=== PATIENT | male | born 1975 | race Caucasian/White ===

== ENCOUNTER 2019-11-14 21:25 | Emergency (ER) | payer MEDICAID, OTHER ==
[~2019-11-14] VITALS: Ht 182.9 cm; Wt 89.8 kg
[2019-11-14 22:13] LABS: Basophils # (auto) 0 10 ^3/uL (0-0.2); Basophils % (auto) 0.2 % (0.0-2.0); Eosinophils # (auto) 0.5 10 ^3/uL (0-0.8); Eosinophils % (auto) 2.8 % (0.0-7.0); Hematocrit 46.7 % (41.0-53.0); Hemoglobin 15.9 g/dL (13.5-17.5); Lymphocytes # (auto) 4.8 10 ^3/uL (0.4-5.4); Mean Corpuscular Hemoglobin 32.1 pg (28.0-32.0); Mean Corpuscular Hgb Conc. 34.1 g/dL (32.0-36.0); Mean Corpuscular Volume 94.2 fL (80.0-100.0); Monocytes # (auto) 0.8 10 ^3/uL (0-1.3); Monocytes % (auto) 5.1 % (0.0-12.0); Neutrophils # (auto) 10.4 10 ^3/uL (1.6-8.6); Neutrophils % (auto) 62.9 % (37.0-80.0); Platelet Count (auto) 339 10^3/uL (140-450); Red Blood Cells 4.95 10^6/uL (4.5-5.90); White Blood Cell 16.5 10^3/uL (4.4-10.8)
[2019-11-14 22:32] LABS: Albumin 3.5 g/dL (3.4-5.0); Anion Gap 5 (5-15); Blood Urea Nitrogen 18 mg/dL (7-18); Carbon Dioxide 26 mmol/L (21-32); Chloride 104 mmol/L (98-107); Glucose 176 mg/dL (74-106); Potassium 4.1 mmol/L (3.5-5.1); Sodium 135 mmol/L (136-145)
[2019-11-14 22:37] LABS: Alanine Aminotransferase 38 U/L (16-61); Alkaline Phosphatase 146 U/L (45-117); Aspartate Aminotransferase 15 U/L (15-37); BUN/Creatinine Ratio 15.7; Bilirubin, Total 0.3 mg/dL (0.2-1.0); GFR African American 88 mL/min; GFR Non-African American 73 mL/min; Total Protein 8.3 g/dL (6.4-8.2)
[2019-11-15] MEDS ORDERED: ONDANSETRON HCL 4 MG/2 ML VIAL IV ONE (00:45)
[2019-11-15] MEDS ORDERED: HYDROmorphone HCL 2 MG/ML VL IV ONE (00:45)
[2019-11-15 01:00] VITALS: BP 115/76
== END 2019-11-15 01:58 | disposition home or self-care (01) ==
LOC: ER 21:27
DX: R51.9 Headache, unspecified (principal); M54.5 Low back pain; K80.20 Calculus of gallbladder without cholecystitis without obstruction; I71.4 Abdominal aortic aneurysm, without rupture
CPT/HCPCS: 36415; 70450; 74176; 80053; 84484; 85025; 93005; 96374; 96375; 99285; J1170; J2405

== ENCOUNTER 2020-12-11 08:00 | Emergency (ER) | payer SELFPAY ==
[~2020-12-11] VITALS: Ht 182.9 cm; Wt 81.6 kg
[2020-12-11 08:09] VITALS: BP 182/113
[2020-12-11 08:31] LABS: Urine WBC None Seen /hpf (0 - 3)
[2020-12-11 08:47] LABS: Urine Bacteria NONE SEEN /hpf (None Seen); Urine Blood Negative /uL (Negative); Urine Specific Gravity 1.026 (1.001-1.035)
== END 2020-12-11 09:47 | disposition left against medical advice (07) ==
LOC: ER 08:00
DX: R10.9 Unspecified abdominal pain (principal); R11.0 Nausea; R30.0 Dysuria; Z53.21 Procedure and treatment not carried out due to patient leaving prior to being seen by health care provider
CPT/HCPCS: 81001

== ENCOUNTER 2021-02-03 11:08 | Inpatient (IN) | payer MEDICAID, OTHER ==
[~2021-02-03] VITALS: Ht 177.8 cm; Wt 96.5 kg
[2021-02-03] MEDS ORDERED: LORazepam 2MG/ML-1ML VIAL IV ONE ×2 (11:30→15:00)
[2021-02-03] MEDS ORDERED: SODIUM CHLORIDE 0.9% 1,000 ML IVB ONE (11:30)
[2021-02-03 12:21] LABS: Basophils # (auto) 0.1 10 ^3/uL (0-0.2); Eosinophils # (auto) 0.4 10 ^3/uL (0-0.8); Hematocrit 46.5 % (41.0-53.0); Hemoglobin 15.6 g/dL (13.5-17.5); Lymphocytes # (auto) 2.6 10 ^3/uL (0.4-5.4); Lymphocytes % (auto) 22.3 % (10.0-50.0); Mean Corpuscular Hemoglobin 32.8 pg (28.0-32.0); Mean Corpuscular Hgb Conc. 33.5 g/dL (32.0-36.0); Mean Corpuscular Volume 97.6 fL (80.0-100.0); Monocytes # (auto) 0.8 10 ^3/uL (0-1.3); Monocytes % (auto) 6.4 % (0.0-12.0); Neutrophils % (auto) 67.3 % (37.0-80.0); Nucleated Red Blood Cells % 0.1 %; Red Blood Cells 4.76 10^6/uL (4.5-5.90); Red Cell Distribution Width 13.3 % (11.8-14.3); White Blood Cell 11.8 10^3/uL (4.4-10.8)
[2021-02-03 12:35] LABS: Albumin 3.3 g/dL (3.4-5.0); Anion Gap 4 (5-15); Aspartate Aminotransferase 38 U/L (15-37); BUN/Creatinine Ratio 12.9; Blood Alcohol < 3.0 mg/dL (0-5); Blood Urea Nitrogen 13 mg/dL (7-18); Carbon Dioxide 25 mmol/L (21-32); Chloride 111 mmol/L (98-107); GFR African American 102 mL/min; GFR Non-African American 84 mL/min; Glucose 111 mg/dL (74-106); Magnesium 1.9 mg/dL (1.6-2.6); Potassium 4.1 mmol/L (3.5-5.1); Sodium 140 mmol/L (136-145)
[2021-02-03 12:49] LABS: Alanine Aminotransferase 40 U/L (16-61); Alkaline Phosphatase 106 U/L (45-117); Bilirubin, Total 0.5 mg/dL (0.2-1.0)
[2021-02-03] MEDS ORDERED: ASPirin 81 mg TAB PO ONE ×2 (14:30→15:00)
[2021-02-03] MEDS ORDERED: MORPHINE SULFATE INJECTION 2 MG/ML SYRG IV PRN (15:00)
[2021-02-03] MEDS ORDERED: DEXTROSE (50%) 50ML SYRG IV PRN (15:00)
[2021-02-03] MEDS ORDERED: LISINOPRIL 10 MG TAB PO ONE (15:00)
[2021-02-03] MEDS ORDERED: NITROGLYCERIN 0.4 MG SL TAB SL PRN (15:00)
[2021-02-03] MEDS ORDERED: traMADol HCL 50 MG TAB PO PRN (15:00)
[2021-02-03] MEDS ORDERED: ACETAMINOPHEN 500 MG TAB PO PRN (15:00)
[2021-02-03 15:13] LABS: Alcohol, Urine < 3.0 mg/dL (0-10); Amphetamine Screen, Urine NEGATIVE (NEGATIVE); Barbiturate Scree,Urine NEGATIVE (NEGATIVE); Benzodiazephine Screen, Urine NEGATIVE (NEGATIVE); Cannabinoid Screen, Urine NEGATIVE (NEGATIVE); Cocaine Screen, Urine NEGATIVE (NEGATIVE); Opiate Scree,Urine NEGATIVE (NEGATIVE); Phencyclidine Screen, Urine NEGATIVE (NEGATIVE); Urine Bacteria FEW /hpf (None Seen); Urine Blood Negative /uL (Negative); Urine Specific Gravity 1.008 (1.001-1.035); Urine WBC <1 /hpf (0 - 3)
[2021-02-03] MEDS ORDERED: LORazepam 2MG/ML-1ML VIAL IV PRN (16:30)
[2021-02-03] MEDS: InsuLIN REG 1unit/0.01ml Soln (100units/ml) SC SCH ×2 (17:00→23:11)
[2021-02-03] MEDS: ACCU-CHEK COMFORT CURVE STRIP VI SCH ×2 (17:16→23:08)
[2021-02-03 19:30] VITALS: BP 146/98
[2021-02-03] MEDS ORDERED: HYDR-4833 PO (20:23)
[2021-02-03] MEDS ORDERED: HYDR-4072 PO (20:23)
[2021-02-03] MEDS ORDERED: ATORVASTATIN 20 MG TAB PO SCH (22:00)
[2021-02-03] MEDS: APIXABAN 5 MG TAB PO SCH (23:08)
[2021-02-04] MEDS ORDERED: HYDROcodone-ACET 5/325MG TAB PO PRN (05:30)
[2021-02-04 06:00] VITALS: BP 136/95
[2021-02-04 06:30] LABS: Potassium 4.2 mmol/L (3.5-5.1)
[2021-02-04 06:35] LABS: BUN/Creatinine Ratio 18.1; Calcium 9.2 mg/dL (8.5-10.1)
[2021-02-04] MEDS: InsuLIN REG 1unit/0.01ml Soln (100units/ml) SC SCH ×3 (07:00→17:00)
[2021-02-04] MEDS: ACCU-CHEK COMFORT CURVE STRIP VI SCH ×3 (07:11→17:00)
[2021-02-04 07:43] LABS: Basophils # (auto) 0.1 10 ^3/uL (0-0.2); Basophils % (auto) 0.6 % (0.0-2.0); Eosinophils # (auto) 0.4 10 ^3/uL (0-0.8); Eosinophils % (auto) 4.3 % (0.0-7.0); Hemoglobin 15.4 g/dL (13.5-17.5); Lymphocytes # (auto) 2.8 10 ^3/uL (0.4-5.4); Lymphocytes % (auto) 28.7 % (10.0-50.0); Mean Corpuscular Hgb Conc. 34.1 g/dL (32.0-36.0); Mean Corpuscular Volume 96.8 fL (80.0-100.0); Monocytes # (auto) 0.6 10 ^3/uL (0-1.3); Monocytes % (auto) 6.3 % (0.0-12.0); Neutrophils % (auto) 60.1 % (37.0-80.0); Nucleated Red Blood Cells % 0.1 %; Red Blood Cells 4.65 10^6/uL (4.5-5.90); Red Cell Distribution Width 13.1 % (11.8-14.3); White Blood Cell 9.9 10^3/uL (4.4-10.8)
[2021-02-04 09:00] VITALS: BP 126/82
[2021-02-04] MEDS: APIXABAN 5 MG TAB PO SCH (09:42)
[2021-02-04] MEDS ORDERED: LISINOPRIL 10 MG TAB PO SCH (10:00)
[2021-02-04] MEDS ORDERED: ASPirin 81 mg TAB PO SCH (10:00)
[2021-02-04] MEDS ORDERED: ATO40T PO (11:57)
[2021-02-04 12:40] VITALS: BP 125/95
[2021-02-04 16:17] VITALS: BP 126/82
[2021-02-05] MEDS ORDERED: ASPI-543 PO (16:02)
[2021-02-05] MEDS ORDERED: APIX5TAB PO (16:02)
== END 2021-02-04 18:15 | disposition home or self-care (01) | DRG 45 ==
LOC: ER 11:08 → EDBD 11:08 → TELE 14:46 → TELE-WESTW 19:02
PROVIDERS: ADMIT Internal Medicine; ATTEND Internal Medicine
DX: I63.9 Cerebral infarction, unspecified (principal); I13.0 Hypertensive heart and chronic kidney disease with heart failure and stage 1 through stage 4 chronic kidney disease, or unspecified chronic kidney disease; I50.22 Chronic systolic (congestive) heart failure; E11.22 Type 2 diabetes mellitus with diabetic chronic kidney disease; H53.462 Homonymous bilateral field defects, left side; N18.9 Chronic kidney disease, unspecified; E66.9 Obesity, unspecified; D18.02 Hemangioma of intracranial structures; F17.210 Nicotine dependence, cigarettes, uncomplicated; Z20.822 Contact with and (suspected) exposure to COVID-19; Z79.01 Long term (current) use of anticoagulants; Z79.899 Other long term (current) drug therapy; Z85.528 Personal history of other malignant neoplasm of kidney; Z85.858 Personal history of malignant neoplasm of other endocrine glands; I25.2 Old myocardial infarction; Z86.73 Personal history of transient ischemic attack (TIA), and cerebral infarction without residual deficits; Z90.5 Acquired absence of kidney; Z71.6 Tobacco abuse counseling; Z68.30 Body mass index [BMI] 30.0-30.9, adult; Z91.010 Allergy to peanuts
CPT/HCPCS: 36415; 70450; 70551; 71045; 74176; 80048; 80053; 80061; 80307; 80320; 81001; 82962; 83036; 83735; 85025; 93005; 93306; 93886; 96361; 96374; G0378; J1815; J7060

== ENCOUNTER 2021-02-05 09:50 | Inpatient (IN) | payer MEDICAID, OTHER ==
[~2021-02-05] VITALS: Ht 182.9 cm; Wt 50.8 kg
[~2021-02-05 09:50] MED LIST: ATO40T PO; HYDR-4072 PO; HYDR-4833 PO
[2021-02-05] MEDS ORDERED: SODIUM CHLORIDE 0.9% 1,000 ML IV ONE (10:45)
[2021-02-05 11:16] LABS: Basophils # (auto) 0.1 10 ^3/uL (0-0.2); Basophils % (auto) 0.8 % (0.0-2.0); Eosinophils # (auto) 0.3 10 ^3/uL (0-0.8); Eosinophils % (auto) 2.7 % (0.0-7.0); Hematocrit 46.5 % (41.0-53.0); Lymphocytes # (auto) 2.6 10 ^3/uL (0.4-5.4); Mean Corpuscular Hemoglobin 33.3 pg (28.0-32.0); Mean Corpuscular Hgb Conc. 34.5 g/dL (32.0-36.0); Mean Corpuscular Volume 96.6 fL (80.0-100.0); Monocytes # (auto) 0.5 10 ^3/uL (0-1.3); Monocytes % (auto) 4.5 % (0.0-12.0); Neutrophils # (auto) 7.9 10 ^3/uL (1.6-8.6); Red Blood Cells 4.81 10^6/uL (4.5-5.90); Red Cell Distribution Width 13.2 % (11.8-14.3); White Blood Cell 11.4 10^3/uL (4.4-10.8)
[2021-02-05 11:30] LABS: INR 1.03 (0.9-1.15); Partial Thromboplastin Time 28.8 sec (23.6-33.0)
[2021-02-05 11:33] LABS: Albumin 3.7 g/dL (3.4-5.0); Calcium 9.5 mg/dL (8.5-10.1); Magnesium 2.8 mg/dL (1.6-2.6); Potassium 4.3 mmol/L (3.5-5.1)
[2021-02-05 11:37] LABS: BUN/Creatinine Ratio 14.5; Bilirubin, Total 0.6 mg/dL (0.2-1.0); Total Protein 7.8 g/dL (6.4-8.2)
[2021-02-05] MEDS ORDERED: MORPHINE SULFATE INJECTION 2 MG/ML SYRG IV PRN ×2 (12:45→14:30)
[2021-02-05] MEDS ORDERED: NITROGLYCERIN 0.4 MG SL TAB SL PRN ×2 (12:45→14:30)
[2021-02-05 14:28] LABS: Urine Bacteria NONE SEEN /hpf (None Seen); Urine Blood Negative /uL (Negative); Urine Hyaline Cast FEW /lpf (0 - 2); Urine Specific Gravity 1.022 (1.001-1.035); Urine WBC 1 /hpf (0 - 3)
[2021-02-05] MEDS ORDERED: FAMOTIDINE (10MG/ML) 2ML VL IV ONE (14:30)
[2021-02-05] MEDS ORDERED: hydrALAZINE HCL 20 MG/ML VL IV PRN (14:30)
[2021-02-05] MEDS ORDERED: DOCUSATE SOD 100 MG CAP PO PRN (14:30)
[2021-02-05] MEDS ORDERED: ALUM & MAG HYDROX-SIMETH LIQ(MAALOX) 30 ML PO PRN (14:30)
[2021-02-05] MEDS ORDERED: ENOXAPARIN SOD 100 MG/1 ML SYRINGE SC ONE (14:30)
[2021-02-05] MEDS ORDERED: ACETAMINOPHEN 325 MG TAB PO PRN (14:30)
[2021-02-05] MEDS ORDERED: METOPROLOL SUCCINATE XL 50 MG TAB PO ONE (14:30)
[2021-02-05] MEDS ORDERED: DEXTROSE (50%) 50ML SYRG IV PRN (14:30)
[2021-02-05] MEDS ORDERED: BENAZEPRIL HCL 10 MG TAB PO ONE (14:30)
[2021-02-05] MEDS ORDERED: LORazepam 0.5 MG TAB PO PRN (14:30)
[2021-02-05] MEDS: SODIUM CHLORIDE 0.9% 1,000 ML IV SCH (14:56)
[2021-02-05 15:08] LABS: Amphetamine Screen, Urine NEGATIVE (NEGATIVE); Barbiturate Scree,Urine NEGATIVE (NEGATIVE); Benzodiazephine Screen, Urine NEGATIVE (NEGATIVE); Cannabinoid Screen, Urine NEGATIVE (NEGATIVE); Cocaine Screen, Urine NEGATIVE (NEGATIVE); Opiate Scree,Urine POSITIVE (NEGATIVE); Phencyclidine Screen, Urine NEGATIVE (NEGATIVE)
[2021-02-05] MEDS ORDERED: ASPI-543 PO (16:02)
[2021-02-05] MEDS ORDERED: APIX5TAB PO (16:02)
[2021-02-05 17:00] VITALS: BP_SYST 122; BP_SYST 149; BP_DIAS 82; BP_DIAS 90
[2021-02-05] MEDS: ACCU-CHEK COMFORT CURVE STRIP VI SCH ×2 (17:00→22:03)
[2021-02-05] MEDS ORDERED: HYDROmorphone HCL 2 MG/ML VL IV ONE (17:00)
[2021-02-05] MEDS: InsuLIN REG 1unit/0.01ml Soln (100units/ml) SC SCH ×2 (17:32→22:00)
[2021-02-05] MEDS: FUROSEMIDE 20 MG/2 ML VIAL IV SCH (18:36)
[2021-02-05 21:51] VITALS: BP 108/79
[2021-02-05] MEDS: ATORVASTATIN 20 MG TAB PO SCH (21:58)
[2021-02-05] MEDS: FAMOTIDINE (10MG/ML) 2ML VL IV SCH (21:58)
[2021-02-06] MEDS: METOCLOPRAMIDE HCL 5MG/ml INJ 2ml VIAL IV PRN ×2 (00:54→05:14)
[2021-02-06] MEDS: MORPHINE SULFATE INJECTION 2 MG/ML SYRG IV PRN ×2 (00:54→05:16)
[2021-02-06 04:43] VITALS: BP 106/68
[2021-02-06] MEDS: FUROSEMIDE 20 MG/2 ML VIAL IV SCH (06:29)
[2021-02-06] MEDS: ACCU-CHEK COMFORT CURVE STRIP VI SCH ×4 (06:33→22:20)
[2021-02-06] MEDS: InsuLIN REG 1unit/0.01ml Soln (100units/ml) SC SCH ×4 (06:33→22:00)
[2021-02-06 06:57] LABS: Basophils # (auto) 0.1 10 ^3/uL (0-0.2); Basophils % (auto) 0.8 % (0.0-2.0); Eosinophils # (auto) 0.3 10 ^3/uL (0-0.8); Eosinophils % (auto) 3.4 % (0.0-7.0); Hematocrit 43.7 % (41.0-53.0); Hemoglobin 15.6 g/dL (13.5-17.5); Lymphocytes # (auto) 3.1 10 ^3/uL (0.4-5.4); Lymphocytes % (auto) 32.5 % (10.0-50.0); Mean Corpuscular Hemoglobin 34.6 pg (28.0-32.0); Mean Corpuscular Hgb Conc. 35.6 g/dL (32.0-36.0); Monocytes # (auto) 0.7 10 ^3/uL (0-1.3); Monocytes % (auto) 7.5 % (0.0-12.0); Neutrophils # (auto) 5.3 10 ^3/uL (1.6-8.6); Neutrophils % (auto) 55.8 % (37.0-80.0); White Blood Cell 9.6 10^3/uL (4.4-10.8)
[2021-02-06 07:03] LABS: INR 1.01 (0.9-1.15); Partial Thromboplastin Time 28.3 sec (23.6-33.0)
[2021-02-06 07:08] LABS: Potassium 4.1 mmol/L (3.5-5.1)
[2021-02-06] MEDS: SODIUM CHLORIDE 0.9% 1,000 ML IV SCH (07:10)
[2021-02-06 07:18] LABS: Albumin 3.4 g/dL (3.4-5.0); BUN/Creatinine Ratio 16.2; Bilirubin, Total 0.3 mg/dL (0.2-1.0); Magnesium 2.8 mg/dL (1.6-2.6); Total Protein 7.6 g/dL (6.4-8.2)
[2021-02-06 08:00] VITALS: BP 113/71
[2021-02-06 09:00] VITALS: BP 114/69
[2021-02-06] MEDS: ASPirin 81 mg TAB PO SCH (09:25)
[2021-02-06] MEDS: FAMOTIDINE (10MG/ML) 2ML VL IV SCH ×2 (09:25→22:20)
[2021-02-06] MEDS: BENAZEPRIL HCL 10 MG TAB PO SCH (09:26)
[2021-02-06] MEDS: METOPROLOL SUCCINATE XL 50 MG TAB PO SCH (09:26)
[2021-02-06 12:10] LABS: Cholesterol 159 mg/dL (< 200); HDL Cholesterol 20 mg/dL (40-59); Triglycerides 406 mg/dL (< 150)
[2021-02-06 12:31] VITALS: BP 117/70
[2021-02-06] MEDS: HYDROcodone-ACET 10/325MG TAB PO PRN (15:47)
[2021-02-06] MEDS ORDERED: NICOTINE 21MG/24 HR TOPICAL PATCH TD ONE (16:00)
[2021-02-06 17:13] VITALS: BP 107/73
[2021-02-06 22:00] VITALS: BP 107/70
[2021-02-06] MEDS: ATORVASTATIN 20 MG TAB PO SCH (22:20)
[2021-02-07 05:00] VITALS: BP 113/72
[2021-02-07 06:22] LABS: Basophils # (auto) 0.1 10 ^3/uL (0-0.2); Basophils % (auto) 0.9 % (0.0-2.0); Lymphocytes # (auto) 3.3 10 ^3/uL (0.4-5.4); Monocytes # (auto) 0.8 10 ^3/uL (0-1.3); Monocytes % (auto) 8.2 % (0.0-12.0); White Blood Cell 9.2 10^3/uL (4.4-10.8)
[2021-02-07 06:24] LABS: Eosinophils # (auto) 0.3 10 ^3/uL (0-0.8); Eosinophils % (auto) 3.6 % (0.0-7.0); Hematocrit 42.1 % (41.0-53.0); Hemoglobin 14.9 g/dL (13.5-17.5); Lymphocytes % (auto) 35.5 % (10.0-50.0); Mean Corpuscular Hemoglobin 33.9 pg (28.0-32.0); Mean Corpuscular Hgb Conc. 35.4 g/dL (32.0-36.0); Mean Corpuscular Volume 95.8 fL (80.0-100.0); Neutrophils # (auto) 4.8 10 ^3/uL (1.6-8.6); Neutrophils % (auto) 51.8 % (37.0-80.0); Red Cell Distribution Width 12.9 % (11.8-14.3)
[2021-02-07 06:46] LABS: Calcium 9.2 mg/dL (8.5-10.1); Potassium 4.1 mmol/L (3.5-5.1)
[2021-02-07 06:53] LABS: BUN/Creatinine Ratio 24.1
[2021-02-07] MEDS: InsuLIN REG 1unit/0.01ml Soln (100units/ml) SC SCH ×4 (07:00→22:00)
[2021-02-07] MEDS: ACCU-CHEK COMFORT CURVE STRIP VI SCH ×4 (07:20→22:28)
[2021-02-07 09:00] VITALS: BP 115/81
[2021-02-07] MEDS: HYDROcodone-ACET 10/325MG TAB PO PRN (09:47)
[2021-02-07] MEDS: FUROSEMIDE 20 MG/2 ML VIAL IV SCH (10:00)
[2021-02-07] MEDS: NICOTINE 21MG/24 HR TOPICAL PATCH TD SCH (10:00)
[2021-02-07] MEDS: ASPirin 81 mg TAB PO SCH (10:00)
[2021-02-07] MEDS: FAMOTIDINE (10MG/ML) 2ML VL IV SCH (10:00)
[2021-02-07] MEDS: BENAZEPRIL HCL 10 MG TAB PO SCH (10:00)
[2021-02-07] MEDS: METOPROLOL SUCCINATE XL 50 MG TAB PO SCH (10:00)
[2021-02-07] MEDS ORDERED: LORazepam 2MG/ML-1ML VIAL IV PRN (14:45)
[2021-02-07] MEDS: ATORVASTATIN 20 MG TAB PO SCH (21:54)
[2021-02-07 22:00] VITALS: BP 135/100
[2021-02-07] MEDS: MUPIROCIN 2% OINT 15gm or 22gm EACHNOSTRI SCH (22:11)
[2021-02-07] MEDS: MORPHINE SULFATE INJECTION 2 MG/ML SYRG IV PRN (22:11)
[2021-02-07] MEDS: METOCLOPRAMIDE HCL 5MG/ml INJ 2ml VIAL IV PRN (22:19)
[2021-02-08] MEDS: HYDROcodone-ACET 10/325MG TAB PO PRN ×3 (02:55→21:30)
[2021-02-08 05:00] VITALS: BP 119/75
[2021-02-08] MEDS: InsuLIN REG 1unit/0.01ml Soln (100units/ml) SC SCH ×4 (06:51→21:36)
[2021-02-08] MEDS: ACCU-CHEK COMFORT CURVE STRIP VI SCH ×4 (06:52→21:31)
[2021-02-08 08:00] VITALS: BP 119/75
[2021-02-08 09:00] VITALS: BP 115/79
[2021-02-08] MEDS: MUPIROCIN 2% OINT 15gm or 22gm EACHNOSTRI SCH ×2 (10:01→21:29)
[2021-02-08] MEDS: FUROSEMIDE 20 MG/2 ML VIAL IV SCH (10:01)
[2021-02-08] MEDS: ASPirin 81 mg TAB PO SCH (10:01)
[2021-02-08] MEDS: BENAZEPRIL HCL 10 MG TAB PO SCH (10:02)
[2021-02-08] MEDS: METOPROLOL SUCCINATE XL 50 MG TAB PO SCH (10:02)
[2021-02-08] MEDS: NICOTINE 21MG/24 HR TOPICAL PATCH TD SCH (10:05)
[2021-02-08] MEDS ORDERED: APIXABAN 5 MG TAB PO ONE (11:00)
[2021-02-08 13:00] VITALS: BP 128/73
[2021-02-08 17:00] VITALS: BP 118/73
[2021-02-08] MEDS: ATORVASTATIN 20 MG TAB PO SCH (21:29)
[2021-02-08] MEDS: APIXABAN 5 MG TAB PO SCH (21:30)
[2021-02-08 22:00] VITALS: BP 119/80
[2021-02-09] VITALS (7 sets, daily range): BP systolic 99–140; BP diastolic 72–88
[2021-02-09] MEDS: ACCU-CHEK COMFORT CURVE STRIP VI SCH ×4 (06:23→21:39)
[2021-02-09] MEDS: InsuLIN REG 1unit/0.01ml Soln (100units/ml) SC SCH ×4 (06:28→21:42)
[2021-02-09] MEDS: MUPIROCIN 2% OINT 15gm or 22gm EACHNOSTRI SCH ×2 (09:38→21:37)
[2021-02-09] MEDS: ASPirin 81 mg TAB PO SCH (09:39)
[2021-02-09] MEDS: FUROSEMIDE 20 MG/2 ML VIAL IV SCH (09:39)
[2021-02-09] MEDS: BENAZEPRIL HCL 10 MG TAB PO SCH (09:39)
[2021-02-09] MEDS: APIXABAN 5 MG TAB PO SCH ×2 (09:39→21:38)
[2021-02-09] MEDS: METOPROLOL SUCCINATE XL 50 MG TAB PO SCH (09:40)
[2021-02-09] MEDS: NICOTINE 21MG/24 HR TOPICAL PATCH TD SCH (09:48)
[2021-02-09] MEDS: HYDROcodone-ACET 10/325MG TAB PO PRN ×4 (09:49→21:38)
[2021-02-09] MEDS: ATORVASTATIN 20 MG TAB PO SCH (21:39)
[2021-02-10] MEDS: HYDROcodone-ACET 10/325MG TAB PO PRN (04:46)
[2021-02-10 05:00] VITALS: BP 130/88
[2021-02-10] MEDS: ACCU-CHEK COMFORT CURVE STRIP VI SCH ×2 (06:12→11:44)
[2021-02-10] MEDS: InsuLIN REG 1unit/0.01ml Soln (100units/ml) SC SCH ×2 (06:13→11:30)
[2021-02-10 09:22] VITALS: BP 116/78
[2021-02-10] MEDS: MUPIROCIN 2% OINT 15gm or 22gm EACHNOSTRI SCH (10:04)
[2021-02-10] MEDS: APIXABAN 5 MG TAB PO SCH (10:05)
[2021-02-10] MEDS: BENAZEPRIL HCL 10 MG TAB PO SCH (10:05)
[2021-02-10] MEDS: FUROSEMIDE 20 MG/2 ML VIAL IV SCH (10:05)
[2021-02-10] MEDS: METOPROLOL SUCCINATE XL 50 MG TAB PO SCH (10:06)
[2021-02-10] MEDS: NICOTINE 21MG/24 HR TOPICAL PATCH TD SCH (10:06)
[2021-02-10] MEDS ORDERED: BENA5TAB9 PO (11:49)
[2021-02-10 13:00] VITALS: BP 111/77
== END 2021-02-10 16:40 | disposition home or self-care (01) | DRG 45 ==
LOC: ER 09:50 → TELE 12:40 → TELE-CENTR 15:39
PROVIDERS: ADMIT Hospitalist; ATTEND Internal Medicine
DX: I63.9 Cerebral infarction, unspecified (principal); I21.4 Non-ST elevation (NSTEMI) myocardial infarction; I13.0 Hypertensive heart and chronic kidney disease with heart failure and stage 1 through stage 4 chronic kidney disease, or unspecified chronic kidney disease; I50.22 Chronic systolic (congestive) heart failure; G81.91 Hemiplegia, unspecified affecting right dominant side; I42.9 Cardiomyopathy, unspecified; D18.02 Hemangioma of intracranial structures; E11.65 Type 2 diabetes mellitus with hyperglycemia; E66.9 Obesity, unspecified; E78.5 Hyperlipidemia, unspecified; I25.10 Atherosclerotic heart disease of native coronary artery without angina pectoris; E11.22 Type 2 diabetes mellitus with diabetic chronic kidney disease; F17.210 Nicotine dependence, cigarettes, uncomplicated; Z20.822 Contact with and (suspected) exposure to COVID-19; N18.9 Chronic kidney disease, unspecified; I25.2 Old myocardial infarction; R29.810 Facial weakness; Z79.01 Long term (current) use of anticoagulants; Z79.82 Long term (current) use of aspirin; Z79.899 Other long term (current) drug therapy; Z80.0 Family history of malignant neoplasm of digestive organs; Z82.49 Family history of ischemic heart disease and other diseases of the circulatory system; Z85.528 Personal history of other malignant neoplasm of kidney; Z85.858 Personal history of malignant neoplasm of other endocrine glands; Z86.73 Personal history of transient ischemic attack (TIA), and cerebral infarction without residual deficits; Z90.5 Acquired absence of kidney; Z90.49 Acquired absence of other specified parts of digestive tract; Z68.29 Body mass index [BMI] 29.0-29.9, adult; Z71.6 Tobacco abuse counseling; Z91.010 Allergy to peanuts
CPT/HCPCS: 36415; 70450; 70551; 71045; 80048; 80053; 80061; 80307; 81001; 82962; 83735; 83880; 84100; 84443; 84484; 85025; 85379; 85610; 85730; 87040; 87081; 87086; 87426; 93005; 96361; 96372; 96374; G0378; J1815; J3490

== ENCOUNTER 2022-04-01 19:55 | Inpatient (IN) | payer MEDICAID ==
[~2022-04-01] VITALS: Ht 182.9 cm; Wt 98.0 kg
[~2022-04-01 19:55] MED LIST changes: +APIX5TAB PO; +ASPI-543 PO; +BENA5TAB9 PO; -HYDR-4072 PO; -HYDR-4833 PO
[2022-04-01] MEDS ORDERED: MORPHINE SULFATE 4 MG/ML SYR/VIAL IV ONE ×2 (21:00→22:00)
[2022-04-01] MEDS ORDERED: ONDANSETRON HCL 4 MG/2 ML VIAL IV ONE (21:45)
[2022-04-01 22:02] LABS: Basophils # (auto) 0.1 10 ^3/uL (0-0.2); Basophils % (auto) 0.6 % (0.0-2.0); Eosinophils # (auto) 0.3 10 ^3/uL (0-0.8); Eosinophils % (auto) 2.3 % (0.0-7.0); Hematocrit 47.1 % (41.0-53.0); Hemoglobin 16.4 g/dL (13.5-17.5); Lymphocytes # (auto) 4.2 10 ^3/uL (0.4-5.4); Lymphocytes % (auto) 28.6 % (10.0-50.0); Mean Corpuscular Hemoglobin 32.7 pg (28.0-32.0); Mean Corpuscular Hgb Conc. 34.9 g/dL (32.0-36.0); Monocytes # (auto) 0.9 10 ^3/uL (0-1.3); Monocytes % (auto) 5.9 % (0.0-12.0); Neutrophils # (auto) 9.2 10 ^3/uL (1.6-8.6); Neutrophils % (auto) 62.6 % (37.0-80.0); Nucleated Red Blood Cells % 0.2 %; Red Blood Cells 5.01 10^6/uL (4.5-5.90); Red Cell Distribution Width 12.8 % (11.8-14.3); White Blood Cell 14.6 10^3/uL (4.4-10.8)
[2022-04-01 22:12] LABS: Albumin 3.6 g/dL (3.4-5.0); Potassium 4.4 mmol/L (3.5-5.1)
[2022-04-01 22:14] LABS: BUN/Creatinine Ratio 11.5
[2022-04-01 22:18] LABS: Bilirubin, Total 0.4 mg/dL (0.2-1.0); Total Protein 8.1 g/dL (6.4-8.2)
[2022-04-01] MEDS ORDERED: ACETAMINOPHEN 325 MG TAB PO PRN (22:30)
[2022-04-01] MEDS ORDERED: SUMAtriptan SUCCINATE 25 MG TAB PO PRN (22:30)
[2022-04-01 22:38] LABS: INR 0.99 (0.9-1.15)
[2022-04-01] MEDS ORDERED: SUMAtriptan SUCCINATE 25 MG TAB PO ONE (22:45)
[2022-04-02] VITALS (8 sets, daily range): BP systolic 116–131; BP diastolic 79–96
[2022-04-02] MEDS: HYDROcodone-ACET 5/325MG TAB PO PRN ×2 (02:09→09:25)
[2022-04-02 05:56] LABS: Basophils # (auto) 0.1 10 ^3/uL (0-0.2); Basophils % (auto) 0.6 % (0.0-2.0); Eosinophils # (auto) 0.4 10 ^3/uL (0-0.8); Hematocrit 44.4 % (41.0-53.0); Lymphocytes # (auto) 4.2 10 ^3/uL (0.4-5.4); Lymphocytes % (auto) 34.5 % (10.0-50.0); Mean Corpuscular Hemoglobin 33.8 pg (28.0-32.0); Mean Corpuscular Hgb Conc. 36.1 g/dL (32.0-36.0); Mean Corpuscular Volume 93.7 fL (80.0-100.0); Monocytes # (auto) 0.9 10 ^3/uL (0-1.3); Neutrophils # (auto) 6.7 10 ^3/uL (1.6-8.6); Neutrophils % (auto) 54.9 % (37.0-80.0); Nucleated Red Blood Cells % 0.1 %; Red Blood Cells 4.74 10^6/uL (4.5-5.90); Red Cell Distribution Width 13.1 % (11.8-14.3); White Blood Cell 12.2 10^3/uL (4.4-10.8)
[2022-04-02 06:44] LABS: Albumin 3.4 g/dL (3.4-5.0); BUN/Creatinine Ratio 13.7; Bilirubin, Total 0.6 mg/dL (0.2-1.0); Calcium 9.1 mg/dL (8.5-10.1); Potassium 4.6 mmol/L (3.5-5.1)
[2022-04-02] MEDS: SACUBITRIL-VALSARTAN 24mg/26mg TAB PO SCH ×2 (09:24→22:13)
[2022-04-02] MEDS: APIXABAN 5 MG TAB PO SCH ×2 (09:25→22:05)
[2022-04-02] MEDS: ASPirin 81 mg TAB PO SCH (09:25)
[2022-04-02] MEDS: METOPROLOL TARTRATE 25 MG TAB PO SCH ×2 (09:26→22:13)
[2022-04-02] MEDS: FUROSEMIDE 20 MG TAB PO SCH (09:29)
[2022-04-02] MEDS ORDERED: LORazepam 2MG/ML-1ML VIAL IV PRN (10:30)
[2022-04-02] MEDS ORDERED: DEXTROSE (50%) 50ML SYRG IV PRN (10:45)
[2022-04-02] MEDS: ONDANSETRON HCL 4 MG/2 ML VIAL IV PRN (11:23)
[2022-04-02] MEDS: InsuLIN REG 1unit/0.01ml Soln (100units/ml) SC SCH ×2 (11:30→17:00)
[2022-04-02] MEDS: ACCU-CHEK COMFORT CURVE STRIP VI SCH ×3 (11:45→22:16)
[2022-04-02 12:20] LABS: Magnesium 2.1 mg/dL (1.6-2.6)
[2022-04-02] MEDS ORDERED: HYDROcodone-ACET 10/325MG TAB PO PRN ×2 (12:45→13:00)
[2022-04-02] MEDS ORDERED: InsuLIN REG 1unit/0.01ml Soln (100units/ml) SC SCH (22:00)
[2022-04-02] MEDS: KETOROLAC TROMETH 30 MG/ML 1ML VIAL IV PRN (22:00)
[2022-04-02] MEDS ORDERED: ATORVASTATIN 20 MG TAB PO SCH (22:00)
[2022-04-03] MEDS: KETOROLAC TROMETH 30 MG/ML 1ML VIAL IV PRN ×2 (04:46→11:53)
[2022-04-03] MEDS: InsuLIN REG 1unit/0.01ml Soln (100units/ml) SC SCH ×3 (06:45→17:00)
[2022-04-03] MEDS: ACCU-CHEK COMFORT CURVE STRIP VI SCH ×3 (06:46→17:00)
[2022-04-03] MEDS ORDERED: EMPAGLIFLOZIN 10 MG TAB PO SCH (07:00)
[2022-04-03 07:53] LABS: Calcium 8.6 mg/dL (8.5-10.1)
[2022-04-03 07:57] LABS: BUN/Creatinine Ratio 17.5
[2022-04-03 09:00] VITALS: BP 114/81
[2022-04-03] MEDS: SACUBITRIL-VALSARTAN 24mg/26mg TAB PO SCH (09:37)
[2022-04-03] MEDS: ASPirin 81 mg TAB PO SCH (09:37)
[2022-04-03] MEDS: METOPROLOL TARTRATE 25 MG TAB PO SCH (09:38)
[2022-04-03] MEDS: FUROSEMIDE 20 MG TAB PO SCH (09:38)
[2022-04-03] MEDS: APIXABAN 5 MG TAB PO SCH (09:38)
[2022-04-03] MEDS: ONDANSETRON HCL 4 MG/2 ML VIAL IV PRN (11:52)
[2022-04-03 13:00] VITALS: BP 118/61
[2022-04-03] MEDS ORDERED: EMPA1TAB PO (15:34)
[2022-04-03] MEDS ORDERED: SUM25T PO (15:34)
[2022-04-03] MEDS ORDERED: SACU1TAB PO (15:34)
[2022-04-03 16:34] VITALS: BP 117/83
[2022-04-03 16:53] VITALS: BP 114/81
== END 2022-04-03 17:58 | disposition home or self-care (01) | DRG 45 ==
LOC: ER 19:55 → OVERFLOW 22:30 → WEST WING 23:31 → TELE-WESTW 04-02 19:20
PROVIDERS: ADMIT Nurse Practitioner; ATTEND Hospitalist
DX: I63.9 Cerebral infarction, unspecified (principal); I21.A1 Myocardial infarction type 2; E11.22 Type 2 diabetes mellitus with diabetic chronic kidney disease; I13.0 Hypertensive heart and chronic kidney disease with heart failure and stage 1 through stage 4 chronic kidney disease, or unspecified chronic kidney disease; I50.42 Chronic combined systolic (congestive) and diastolic (congestive) heart failure; E11.65 Type 2 diabetes mellitus with hyperglycemia; Z20.822 Contact with and (suspected) exposure to COVID-19; E66.9 Obesity, unspecified; Z68.29 Body mass index [BMI] 29.0-29.9, adult; E78.5 Hyperlipidemia, unspecified; F17.210 Nicotine dependence, cigarettes, uncomplicated; H53.40 Unspecified visual field defects; H54.7 Unspecified visual loss; N18.9 Chronic kidney disease, unspecified; I25.10 Atherosclerotic heart disease of native coronary artery without angina pectoris; I25.5 Ischemic cardiomyopathy; Z79.82 Long term (current) use of aspirin; Z79.899 Other long term (current) drug therapy; Z79.01 Long term (current) use of anticoagulants; Z80.0 Family history of malignant neoplasm of digestive organs; Z82.49 Family history of ischemic heart disease and other diseases of the circulatory system; Z85.528 Personal history of other malignant neoplasm of kidney; Z85.858 Personal history of malignant neoplasm of other endocrine glands; Z90.5 Acquired absence of kidney; Z91.010 Allergy to peanuts; Z90.49 Acquired absence of other specified parts of digestive tract
CPT/HCPCS: 36415; 70450; 70551; 71045; 80048; 80053; 80061; 82962; 83036; 83735; 83880; 84443; 84484; 85025; 85610; 87426; 93005; 93306; 93886; 96374; 96375; G0378; J1815; J1885; J2405

== ENCOUNTER 2023-10-14 04:21 | Emergency (ER) | payer OTHER, MEDICAID ==
[~2023-10-14] VITALS: Ht 182.9 cm; Wt 81.7 kg
[~2023-10-14 04:21] MED LIST changes: -ATO40T PO; +ATOR-507 PO; +EMPA1TAB PO; +SACU1TAB PO; +SUM25T PO
[2023-10-14 06:24] LABS: Alanine Aminotransferase 20 U/L (7-40); Albumin 4.1 g/dL (3.2-4.8); Alkaline Phosphatase 113 U/L (46-116); Anion Gap 6 (5-15); Aspartate Aminotransferase 15 U/L (13-40); BUN/Creatinine Ratio 9.2 (10.0-20.0); Bilirubin, Total 0.8 mg/dL (0.2-1.0); Blood Urea Nitrogen 12 mg/dL (9-23); Calcium 10.2 mg/dL (8.7-10.4); Carbon Dioxide 22 mmol/L (20-30); Chloride 112 mmol/L (98-107); Glucose 105 mg/dL (74-106); Magnesium 1.9 mg/dL (1.6-2.6); Potassium 4.6 mmol/L (3.5-5.1); Sodium 140 mmol/L (136-145); Total Protein 7.3 g/dL (5.7-8.2)
[2023-10-14 06:44] LABS: Basophils # (auto) 0.1 10 ^3/uL (0-0.2); Basophils % (auto) 0.7 % (0.0-2.0); Eosinophils # (auto) 0.3 10 ^3/uL (0-0.8); Eosinophils % (auto) 3.9 % (0.0-7.0); Hemoglobin 14.8 g/dL (13.5-17.5); Lymphocytes # (auto) 2.5 10 ^3/uL (0.4-5.4); Lymphocytes % (auto) 29.2 % (10.0-50.0); Mean Corpuscular Hemoglobin 33.8 pg (28.0-32.0); Mean Corpuscular Hgb Conc. 33.6 g/dL (32.0-36.0); Mean Corpuscular Volume 100.4 fL (80.0-100.0); Monocytes # (auto) 0.6 10 ^3/uL (0-1.3); Monocytes % (auto) 6.4 % (0.0-12.0); Neutrophils # (auto) 5.2 10 ^3/uL (1.6-8.6); Neutrophils % (auto) 59.8 % (37.0-80.0); Nucleated Red Blood Cells % 0.2 %; Platelet Count (auto) 190 10^3/uL (140-450); Red Blood Cells 4.38 10^6/uL (4.5-5.90); Red Cell Distribution Width 15.1 % (11.8-14.3); White Blood Cell 8.7 10^3/uL (4.4-10.8)
[2023-10-14 07:00] LABS: INR 1.13 (0.9-1.15); Partial Thromboplastin Time 28.5 SEC (24.5-34.5); Prothrombin Time 11.9 sec (9.3-11.8)
[2023-10-14] MEDS: NITROGLYCERIN 2% OINT 1GM PKG TD ONE (07:59)
[2023-10-14] MEDS: ASPirin 81 mg TAB PO ONE (08:02)
[2023-10-14] MEDS: cefTRIAXone 1GM/50ML D5W 50 ML IV ONE (08:03)
[2023-10-14] MEDS: FUROSEMIDE 40 MG/4 ML VIAL IV ONE (08:03)
[2023-10-14 08:07] LABS: Urine Bacteria None Seen /hpf (None Seen)
[2023-10-14] MEDS: IOHEXOL 350 MG/ML 100ML IJ ONE (08:07)
[2023-10-14 08:25] LABS: Urine Blood Negative /uL (Negative); Urine Clarity Clear (Clear); Urine Color Yellow (Yellow); Urine Hyaline Cast FEW /lpf (0 - 2); Urine Protein, UAD 1+ (Negative); Urine Specific Gravity 1.026 (1.001-1.035); Urine Urobilinogen Normal (Negative); Urine WBC 1 /hpf (0 - 3); Urine pH 5.5 (5.0-9.0)
[2023-10-14 09:10] VITALS: PULSE 89; RESP 17; TEMP 97.9; O2SAT 95
[2023-10-14] MEDS: AZITHROMYCIN 500MG/ 250ML 250 ML IV ONE (09:35)
[2023-10-14 10:00] VITALS: BP 117/83; PULSE 82; RESP 24; O2SAT 100
[2023-10-14] MEDS: AZITHROMYCIN 250 MG TAB PO ONE (10:04)
== END 2023-10-14 11:25 | disposition left against medical advice (07) ==
LOC: ER 04:21 → EDBD 04:21 → ER 11:25
DX: J18.9 Pneumonia, unspecified organism (principal); I21.4 Non-ST elevation (NSTEMI) myocardial infarction; E11.22 Type 2 diabetes mellitus with diabetic chronic kidney disease; I13.0 Hypertensive heart and chronic kidney disease with heart failure and stage 1 through stage 4 chronic kidney disease, or unspecified chronic kidney disease; N18.9 Chronic kidney disease, unspecified; I50.9 Heart failure, unspecified; F17.210 Nicotine dependence, cigarettes, uncomplicated; Z86.73 Personal history of transient ischemic attack (TIA), and cerebral infarction without residual deficits; Z90.49 Acquired absence of other specified parts of digestive tract; Z91.010 Allergy to peanuts
CPT/HCPCS: 36415; 71045; 71275; 80053; 81001; 83735; 83880; 84484; 85025; 85379; 85610; 85730; 93005; 96365; 96375; 99285; J0456; J0696; J1940; Q9967